=== PATIENT | female | born 1965 | race Caucasian/White ===

== ENCOUNTER 2017-09-12 16:30 | Emergency (ER) | payer BC ==
[2017-09-12] MEDS ORDERED: ONDANSETRON 4 MG/2 ML VIAL IVP STA (19:42)
[2017-09-12] MEDS ORDERED: KETOROLAC 30 MG/ML 1 ML VIAL IVP STA (19:42)
[2017-09-12] MEDS ORDERED: RX INFO: IV CONTRAST WAS GIVEN 1 EACH MISC MISCELLANE PRN (19:42)
--- NOTE | 2017-09-12 20:14 | ED ---
General Adult HPI - General Chief complaint: Abdominal Pain Stated complaint: Pelvic Pain Time Seen by Provider: 09/12/17 19:15 Source: patient, RN notes reviewed, old records reviewed Mode of arrival: wheelchair Limitations: no limitations - History of Present Illness Initial comments: 51-year-old female with no significant past medical history presents for right lower quadrant abdominal pain. Patient was evaluated at an outside emergency department several days ago and was diagnosed with right ovarian cyst. She has had constant pain since that time. This pain is not relieved by Motrin. He was diagnosed with pelvic ultrasound. She has also had some constipation issues , last bowel was 4 days ago. No history of diarrhea. No history of vomiting however she has had some nausea. No history of fever. Patient is currently perimenopausal. She is having irregular periods. - Related Data Previous Rx's Medication Instructions Recorded Ibuprofen [Motrin] 600 mg PO Q8HR PRN #24 tab 09/12/17 Allergies Allergy/AdvReac Type Severity Reaction Status Date / Time No Known Allergies Allergy Verified 09/12/17 19:21 Review of Systems ROS Statement: Those systems with pertinent positive or pertinent negative responses have been documented in the HPI. ROS Other: All systems not noted in ROS Statement are negative. Past Medical History Additional Past Medical History / Comment(s): ovarian cyst History of Any Multi-Drug Resistant Organisms: None Reported Past Surgical History: Cholecystectomy Past Psychological History: No Psychological Hx Reported Smoking Status: Current every day smoker Past Alcohol Use History: None Reported Past Drug Use History: None Reported General Exam Limitations: no limitations General appearance: alert, in no apparent distress Head exam: Present: atraumatic, normocephalic Eye exam: Present: normal appearance, PERRL ENT exam: Present: normal exam Neck exam: Present: normal inspection. Absent: tenderness, meningismus Respiratory exam: Present: normal lung sounds bilaterally. Absent: respiratory distress, wheezes Cardiovascular Exam: Present: regular rate, normal rhythm GI/Abdominal exam: Present: soft, tenderness (Right lower quadrant tenderness to palpation). Absent: distended, guarding, rebound Extremities exam: Present: normal inspection, normal capillary refill. Absent: pedal edema Neurological exam: Present: alert, oriented X3, CN II-XII intact. Absent: motor sensory deficit Psychiatric exam: Present: normal affect, normal mood Skin exam: Present: warm, dry, intact. Absent: cyanosis, diaphoretic Course Vital Signs 09/12/17 18:12 Temperature 98.1 F Pulse Rate 74 Respiratory 20 Rate Blood Pressure 113/74 O2 Sat by Pulse 100 Oximetry Medical Decision Making - Medical Decision Making 51-year-old female with 1 week of right lower quadrant abdominal pain. CT is obtained, is negative for appendicitis, there is 3.5 cm ovarian cyst which was seen on ultrasound according to the patient had previous ER visit within this week. The blood cell count normal, hemoglobin stable, electrolytes and liver enzymes all unremarkable. Urinalysis does show 1+ ketone consistent with mild dehydration. Patient will follow-up with her primary care physician. She should continue to take Motrin for pain. Return with any worsening or changing symptoms. - Lab Data Result diagrams: 09/12/17 20:30 09/12/17 20:30 Lab Results 09/12/17 09/12/17 09/12/17 Range/Units 20:30 20:30 20:30 WBC 7.6 (3.8-10.6) k/uL RBC 4.42 (3.80-5.40) m/uL Hgb 13.6 (11.4-16.0) gm/dL Hct 41.5 (34.0-46.0) % MCV 94.0 (80.0-100.0) fL MCH 30.7 (25.0-35.0) pg MCHC 32.7 (31.0-37.0) g/dL RDW 12.8 (11.5-15.5) % Plt Count 226 (150-450) k/uL Neutrophils % 67 % Lymphocytes % 26 % Monocytes % 4 % Eosinophils % 1 % Basophils % 0 % Neutrophils # 5.1 (1.3-7.7) k/uL Lymphocytes # 2.0 (1.0-4.8) k/uL Monocytes # 0.3 (0-1.0) k/uL Eosinophils # 0.1 (0-0.7) k/uL Basophils # 0.0 (0-0.2) k/uL Sodium 138 (137-145) mmol/L Potassium 4.1 (3.5-5.1) mmol/L Chloride 106 (98-107) mmol/L Carbon Dioxide 25 (22-30) mmol/L Anion Gap 7 mmol/L BUN 10 (7-17) mg/dL Creatinine 0.65 (0.52-1.04) mg/dL Est GFR (MDRD) Af Amer >60 (>60 ml/min/1.73 sqM) Est GFR (MDRD) Non-Af >60 (>60 ml/min/1.73 sqM) Glucose 88 (74-99) mg/dL Calcium 9.0 (8.4-10.2) mg/dL Total Bilirubin 0.4 (0.2-1.3) mg/dL AST 15 (14-36) U/L ALT 29 (9-52) U/L Alkaline Phosphatase 61 (38-126) U/L Total Protein 6.0 L (6.3-8.2) g/dL Albumin 3.6 (3.5-5.0) g/dL Amylase 36 (30-110) U/L Lipase 89 (23-300) U/L Urine Color Yellow Urine Appearance Clear (Clear) Urine pH 5.0 (5.0-8.0) Ur Specific [place] 1.012 (1.001-1.035) Urine Protein Negative (Negative) Urine Glucose (UA) Negative (Negative) Urine Ketones 1+ H (Negative) Urine Blood Negative (Negative) Urine Nitrite Negative (Negative) Urine Bilirubin Negative (Negative) Urine Urobilinogen <2.0 (<2.0) mg/dL Ur Leukocyte Esterase Negative (Negative) Disposition Clinical Impression: Abdominal pain Disposition: HOME SELF-CARE Condition: Good Instructions: Abdominal Pain (ED) Prescriptions: Ibuprofen [Motrin] 600 mg PO Q8HR PRN #24 tab PRN Reason: Pain Referrals: Maria Del Rosario Aldana DO [Primary Care Provider] - 1-2 days Time of Disposition: 21:45
[2017-09-12 20:49] LABS: Appearance,Urine Clear (Clear); Basophils % (A) 0 %; Bilirubin,Urine Negative (Negative); Blood,Urine Negative (Negative); Color,Urine Yellow; Eosinophils # (A) 0.1 k/uL (0-0.7); Eosinophils % (A) 1 %; Glucose,Urine (UA) Negative (Negative); HCT 41.5 % (34.0-46.0); HGB 13.6 gm/dL (11.4-16.0); Ketones,Urine 1+ (Negative); Leukocyte Esterase,Urine Negative (Negative); Lymphocytes % (A) 26 %; MCH 30.7 pg (25.0-35.0); MCHC 32.7 g/dL (31.0-37.0); Mean Platelet Volume 7.4; Monocytes # (A) 0.3 k/uL (0-1.0); Monocytes % (A) 4 %; Neutrophils # (A) 5.1 k/uL (1.3-7.7); Neutrophils % (A) 67 %; Nitrite,Urine Negative (Negative); Platelet Count 226 k/uL (150-450); Protein,Urine Negative (Negative); RBC 4.42 m/uL (3.80-5.40); RDW 12.8 % (11.5-15.5); Specific Gravity,Urine 1.012 (1.001-1.035); Urobilinogen,Urine <2.0 mg/dL (<2.0); WBC 7.6 k/uL (3.8-10.6)
[2017-09-12 21:03] LABS: ALT 29 U/L (9-52); AST 15 U/L (14-36); Albumin 3.6 g/dL (3.5-5.0); Alkaline Phosphatase 61 U/L (38-126); Amylase 36 U/L (30-110); Anion Gap 7 mmol/L; Blood Urea Nitrogen 10 mg/dL (7-17); Carbon Dioxide 25 mmol/L (22-30); Chloride 106 mmol/L (98-107); Glucose 88 mg/dL (74-99); Lipase 89 U/L (23-300); Potassium 4.1 mmol/L (3.5-5.1); Sodium 138 mmol/L (137-145); Total Bilirubin 0.4 mg/dL (0.2-1.3)
--- NOTE | 2017-09-12 21:37 | CT ---
EXAMINATION TYPE: CT abdomen pelvis w con DATE OF EXAM: 09/12/2017 HISTORY: Abdominal pain and nausea CT DLP: 1505.5mGycm Automated Exposure Control for Dose Reduction was Utilized. CONTRAST: CT scan of the abdomen and pelvis is performed with IV Contrast, patient injected with 100 mL of Omni paque 300. COMPARISON: None. FINDINGS: LUNG BASES: Minimal bibasilar subsegmental dependent atelectasis is noted. LIVER/GB: Fluid attenuated right hepatic lesion within segment 8 on series 3 image 15 likely relates to a hepatic cyst. Gallbladder surgically absent. Entirety of the hepatic dome is not imaged. PANCREAS: No significant abnormality is seen. No ductal dilatation. SPLEEN: No significant abnormality is seen. No splenomegaly. ADRENALS: No significant abnormality is seen. No nodularity. KIDNEYS: Kidneys enhance and excrete symmetrically other than a subcentimeter hypoattenuated right re nal lesion within the mid pole that is too small to accurately characterize and series 3 image 27. No hydronephrosis. BOWEL: Appendix is air-filled and within normal limits. Mild amount of retained colonic debris is see n in a nondilated colon. No evidence of dilated small bowel. No focal bowel wall thickening or inflam matory fat stranding surrounding the small and large bowel. UTERUS/[place]: Right ovarian cystic area measures 3.5 cm. LYMPH NODES: No greater than 1cm abdominal or pelvic lymph nodes are appreciated. OSSEOUS STRUCTURES: Minimal multilevel degenerative changes of the visualized thoracolumbar spine are noted. OTHER: No significant additional abnormality is seen. IMPRESSION: 1. No evidence of bowel obstruction. 2. 3.5 cm right ovarian lesion. This could represent an ovarian cyst. Pelvic ultrasound could be perf ormed for further characterization. 3. Probable subcentimeter hepatic cyst and hypoattenuated left renal lesion that is too small to accu rately characterize.
[2017-09-12 22:08] VITALS: BP 123/67; PULSE 75; RESP 16; TEMP 97.6
== END 2017-09-12 22:10 | disposition home or self-care (01) ==
LOC: EC 16:30
DX: R10.31 Right lower quadrant pain (principal); R82.4 Acetonuria; N83.201 Unspecified ovarian cyst, right side; K59.00 Constipation, unspecified; R11.0 Nausea; N92.6 Irregular menstruation, unspecified; F17.200 Nicotine dependence, unspecified, uncomplicated; Z78.0 Asymptomatic menopausal state; Z90.49 Acquired absence of other specified parts of digestive tract
CPT/HCPCS: 36415; 80053; 82150; 83690; 85025; 81003; 74177; 99284; 96374; 96375; J2405; J1885; Q9967